=== PATIENT | female | born 1965 ===

== ENCOUNTER 2022-08-01 19:07 | Emergency (ER) | payer OTHER ==
[2022-08-01 19:41] VITALS: BP 164/97; PULSE 97
[2022-08-01] MEDS ORDERED: Ciprofloxacin 0.3% Ophth Soln 2.5 ML Bottle ONE (19:50)
== END 2022-08-01 20:08 | disposition home or self-care (01) ==
LOC: LB.ED 19:07
DX: B30.9 Viral conjunctivitis, unspecified (principal)
CPT/HCPCS: 99282; A9270-GY